=== PATIENT | female | born 1960 | race American Indian/Alaskan Native ===

== ENCOUNTER 2017-08-10 09:47 | Emergency (ER) | payer OTHER ==
[2017-08-10 10:52] VITALS: BP 118/89
--- NOTE | 2017-08-10 11:16 | XRay Report ---
CHEST 2 VIEWS INDICATION: Cough. COMPARISON: None similar at this institution. FINDINGS: PA and lateral chest radiographs demonstrate normal cardiomediastinal silhouette. Slightly prominent lung markings; otherwise clear, well-expanded lungs. Intact bones. CONCLUSION: No acute chest process, as described. Thank you for the opportunity to participate in this patient's care.
--- NOTE | 2017-08-10 11:33 | Emergency Department Report ---
Upper Respiratory HPI - HPI Chief Complaint: Upper Respiratory Infection Stated Complaint: CHEST AND BODY ACHES Time Seen by Provider: 08/10/17 11:25 Duration: 2 Days URI Symptoms: Rhinorrhea: Yes, Sore Throat: Yes, Ear Pain: No, Cough: Yes, Shortness of Breath: No, Sick Contacts: Yes, Unable to Take Fluids: No, Urine Output Abnormal: No, Listless Behavior: No - Home Meds and Allergies Home Medications: Previous Rx's Medication Instructions Recorded Last Taken Type ALBUTEROL Inhaler [ProAir HFA 2 puff IH QID PRN #1 inhalation 08/10/17 Unknown Rx Inhaler] Azithromycin [Zithromax Z-ERIKA] 250 mg PO DAILY #6 tablet 08/10/17 Unknown Rx Codeine Phosphate/Guaifenesin 5 ml PO TID PRN #120 ml 08/10/17 Unknown Rx [Guaifenesin-Codeine Syrup] Ibuprofen 800 mg PO TID PRN #30 tablet 08/10/17 Unknown Rx predniSONE [Deltasone] 40 mg PO QDAY #10 tab 08/10/17 Unknown Rx Allergies/Adverse Reactions: Allergies Allergy/AdvReac Type Severity Reaction Status Date / Time No Known Allergies Allergy Unverified 08/10/17 10:52 ED Review of Systems ROS: Stated complaint: CHEST AND BODY ACHES Other details as noted in HPI Constitutional: chills, fever Eyes: denies: eye pain, eye discharge, vision change ENT: throat pain, congestion Respiratory: cough, wheezing. denies: shortness of breath Cardiovascular: denies: chest pain, palpitations Endocrine: no symptoms reported Gastrointestinal: nausea. denies: abdominal pain, diarrhea, constipation Genitourinary: denies: urgency, dysuria, discharge Musculoskeletal: denies: back pain, joint swelling, arthralgia Skin: denies: rash, lesions Neurological: denies: headache, weakness, paresthesias Psychiatric: denies: anxiety, depression Hematological/Lymphatic: denies: easy bleeding, easy bruising ED Past Medical Hx - Past Medical History Previous Medical History?: No - Surgical History Past Surgical History?: No - Social History Smoking Status: Current Every Day Smoker Substance Use Type: None - Medications Home Medications: Home Medications Medication Instructions Recorded Confirmed Last Taken Type ALBUTEROL Inhaler [ProAir HFA 2 puff IH QID PRN #1 inhalation 08/10/17 Unknown Rx Inhaler] Azithromycin [Zithromax Z-ERIKA] 250 mg PO DAILY #6 tablet 08/10/17 Unknown Rx Codeine Phosphate/Guaifenesin 5 ml PO TID PRN #120 ml 08/10/17 Unknown Rx [Guaifenesin-Codeine Syrup] Ibuprofen 800 mg PO TID PRN #30 tablet 08/10/17 Unknown Rx predniSONE [Deltasone] 40 mg PO QDAY #10 tab 08/10/17 Unknown Rx ED Bronchiolitis Physical Exam - Exam General: Vital signs noted. No distress. Alert and acting appropriately. HEENT: Yes Pharyngeal Erythema, Yes Rhinorrhea, No Conjuctival Injection, No Dry Mucous Membranes Ear: Neither TM Bulge, Neither TM Erythema, Neither EAC Discharge Neck: No Adenopathy, No Rigidity Lungs: Yes Clear Lung Sounds, Yes Good Air Exchange, Yes Cough, No Wheezes, No Stridor, No Nasal Flaring, No Retractions, No Use of Accessory Muscles Heart: Yes Regular, No Murmur Abdomen: Yes Normal Bowel Sounds, No Tenderness, No Peritoneal Signs Skin: No Rash, No Eczema Neurologic: Alert and oriented, no deficits. Musculoskeletal: Unremarkable. ED Bronchiolitis Tests - Testing Testing: CXR: Normal/Negative ED Physical Exam - General Limitations: No Limitations General appearance: alert, in no apparent distress - Head Head exam: Present: atraumatic, normocephalic - Eye Eye exam: Present: normal appearance, PERRL, EOMI Pupils: Present: normal accommodation - ENT ENT exam: Present: normal orophraynx, mucous membranes moist, TM's normal bilaterally, normal external ear exam - Expanded ENT Exam Expanded Mouth exam: Present: tongue normal. Absent: trismus, tongue elevation Throat exam: Positive: tonsillar erythema. Negative: tonsillomegaly, tonsillar exudate, R peritonsillar mass, L peritonsillar mass - Neck Neck exam: Present: normal inspection, full ROM. Absent: tenderness, lymphadenopathy, thyromegaly - Respiratory Respiratory exam: Present: normal lung sounds bilaterally, chest wall tenderness (right lateral ). Absent: respiratory distress, wheezes, rhonchi, stridor - Cardiovascular Cardiovascular Exam: Present: regular rate, normal rhythm. Absent: systolic murmur, diastolic murmur, rubs, gallop - GI/Abdominal GI/Abdominal exam: Present: soft, normal bowel sounds - Rectal Rectal exam: Present: deferred - Extremities Exam Extremities exam: Present: normal inspection, full ROM. Absent: tenderness - Back Exam Back exam: Present: normal inspection, full ROM. Absent: tenderness, CVA tenderness (R), CVA tenderness (L) - Neurological Exam Neurological exam: Present: alert, oriented X3 - Psychiatric Psychiatric exam: Present: normal affect, normal mood - Skin Skin exam: Present: warm, dry, intact, normal color. Absent: rash ED Course Vital Signs 08/10/17 10:42 Temperature 98.4 F Pulse Rate 94 H Blood Pressure 118/89 O2 Sat by Pulse 100 Oximetry ED Medical Decision Making - Radiology Data Radiology results: report reviewed, image reviewed no infiltrates no opacities - Medical Decision Making Is is a 57-year-old -[place] female who presents for URI symptoms including cough congestion or rhinorrhea sore throat nocturnal wheezing patient states nocturnal fever Tmax 07/25/2026 last night cough nonproductive with postnasal drip 35 as her and intermittent nausea patient states intermittent right sided chest wall pain with cough denies shortness of breath no dizziness no nausea vomiting. Exam lungs clear no wheezing ENT TMs normal no erythema no pain nose bilateral turbinates erythema boggy clear postnasal drip pharynx mild erythema and tonsillomegaly no exudate no lesions no stridor no swelling uvula midline plan treatment for bronchitis URI. 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 ED Disposition Clinical Impression: Bronchitis URI (upper respiratory infection) Qualifiers: URI type: unspecified viral URI Qualified Code(s): J06.9 - Acute upper respiratory infection, unspecified Disposition: DC-01 TO HOME OR SELFCARE Is pt being admited?: No Does the pt Need Aspirin: No Condition: Good Instructions: Acute Bronchitis (ED), Upper Respiratory Infection (ED) Prescriptions: ALBUTEROL Inhaler [ProAir HFA Inhaler] 2 puff IH QID PRN #1 inhalation PRN Reason: Shortness Of Breath Azithromycin [Zithromax Z-ERIKA] 250 mg PO DAILY #6 tablet Codeine Phosphate/Guaifenesin [Guaifenesin-Codeine Syrup] 5 ml PO TID PRN #120 ml PRN Reason: Cough Ibuprofen 800 mg PO TID PRN #30 tablet PRN Reason: pain and fever predniSONE [Deltasone] 40 mg PO QDAY #10 tab Referrals: SONY BURNS MD [Staff Physician] - 3-5 Days Forms: Work/School Release Form(ED) Time of Disposition: 11:40
== END 2017-08-10 12:06 | disposition home or self-care (01) ==
LOC: ED 09:47
DX: J40 Bronchitis, not specified as acute or chronic (principal); J06.9 Acute upper respiratory infection, unspecified; F17.200 Nicotine dependence, unspecified, uncomplicated
CPT/HCPCS: 71046; 87400; 99283

== ENCOUNTER 2017-12-28 15:24 | Emergency (ER) | payer OTHER ==
[2017-12-28] MEDS ORDERED: ZOFRAN IV ONE (21:06)
[2017-12-28] MEDS ORDERED: NACL 0.9% 1000 ML 1,000 ML IV ONE (21:06)
[2017-12-28] MEDS ORDERED: SUBLIMAZE IV ONE (21:07)
--- NOTE | 2017-12-28 21:10 | Emergency Department Report ---
ED Abdominal Pain HPI - General Chief Complaint: Abdominal Pain Stated Complaint: ABD PAIN Time Seen by Provider: 12/28/17 21:00 Source: patient Mode of arrival: Ambulatory Limitations: No Limitations - History of Present Illness Initial Comments: Patient is a 57-year-old female with past medical history of hysterectomy and left with one ovary. Patient presented to the ER complaining of right lower quadrant pain since yesterday. Patient saw her OB doctor today and she had an ultrasound done but she does not know the results of it. She stated that she had history of ovarian cyst. Patient denied any nausea or vomiting. No urinary symptoms. No vaginal bleeding or discharge. MD Complaint: abdominal pain -: days(s) Location: RLQ Radiation: none Migration to: no migration Severity scale (0 -10): 9 Quality: stabbing, sharp Consistency: constant - Related Data Previous Rx's Medication Instructions Recorded Last Taken Type ALBUTEROL Inhaler [ProAir HFA 2 puff IH QID PRN #1 inhalation 08/10/17 Unknown Rx Inhaler] Azithromycin [Zithromax Z-ERIKA] 250 mg PO DAILY #6 tablet 08/10/17 Unknown Rx Codeine Phosphate/Guaifenesin 5 ml PO TID PRN #120 ml 08/10/17 Unknown Rx [Guaifenesin-Codeine Syrup] Ibuprofen 800 mg PO TID PRN #30 tablet 08/10/17 Unknown Rx predniSONE [Deltasone] 40 mg PO QDAY #10 tab 08/10/17 Unknown Rx Allergies Allergy/AdvReac Type Severity Reaction Status Date / Time No Known Allergies Allergy Unverified 08/10/17 10:52 ED Review of Systems ROS: Stated complaint: ABD PAIN Other details as noted in HPI Comment: All other systems reviewed and negative Constitutional: denies: chills, fever Respiratory: denies: cough, orthopnea, shortness of breath, SOB with exertion Cardiovascular: denies: chest pain, palpitations Gastrointestinal: abdominal pain. denies: nausea, vomiting, diarrhea, constipation, hematemesis, hematochezia Neurological: denies: headache, weakness Psychiatric: denies: auditory hallucinations, visual hallucinations, homicidal thoughts, suicidal thoughts ED Past Medical Hx - Past Medical History Previous Medical History?: Yes Additional medical history: abd pain, Mitral Valve prolapse - Surgical History Past Surgical History?: Yes Additional Surgical History: Hysterectomy - Social History Smoking Status: Current Every Day Smoker Substance Use Type: Alcohol, Prescribed - Medications Home Medications: Home Medications Medication Instructions Recorded Confirmed Last Taken Type ALBUTEROL Inhaler [ProAir HFA 2 puff IH QID PRN #1 inhalation 08/10/17 Unknown Rx Inhaler] Azithromycin [Zithromax Z-ERIKA] 250 mg PO DAILY #6 tablet 08/10/17 Unknown Rx Codeine Phosphate/Guaifenesin 5 ml PO TID PRN #120 ml 08/10/17 Unknown Rx [Guaifenesin-Codeine Syrup] Ibuprofen 800 mg PO TID PRN #30 tablet 08/10/17 Unknown Rx predniSONE [Deltasone] 40 mg PO QDAY #10 tab 08/10/17 Unknown Rx ED Physical Exam - General Limitations: No Limitations General appearance: alert, in distress (secondary to pain) - Head Head exam: Present: atraumatic, normocephalic, normal inspection - Eye Eye exam: Present: normal appearance - ENT ENT exam: Present: normal exam, normal orophraynx, mucous membranes moist - Neck Neck exam: Present: normal inspection, full ROM. Absent: tenderness, meningismus, lymphadenopathy, thyromegaly - Respiratory Respiratory exam: Present: normal lung sounds bilaterally. Absent: respiratory distress, wheezes, rales, rhonchi, stridor, chest wall tenderness, accessory muscle use, decreased breath sounds, prolonged expiratory - Cardiovascular Cardiovascular Exam: Present: regular rate, normal rhythm, normal heart sounds - GI/Abdominal GI/Abdominal exam: Present: soft, tenderness, rebound, normal bowel sounds. Absent: distended, guarding, rigid, diminished bowel sounds, organomegaly, mass , bruit, pulsatile mass, hernia - Extremities Exam Extremities exam: Present: normal inspection, full ROM, normal capillary refill - Back Exam Back exam: Present: normal inspection, full ROM. Absent: tenderness, CVA tenderness (R), CVA tenderness (L) - Neurological Exam Neurological exam: Present: alert, oriented X3, CN II-XII intact, normal gait, reflexes normal - Skin Skin exam: Present: warm, intact, normal color ED Course Vital Signs 12/28/17 12/29/17 16:14 02:15 Temperature 98.7 F Pulse Rate 94 H Respiratory 20 16 Rate Blood Pressure 144/91 O2 Sat by Pulse 96 99 Oximetry ED Medical Decision Making - Lab Data Result diagrams: 12/28/17 21:12 12/28/17 21:12 - Radiology Data Radiology results: report reviewed Referring Physician: ALEXANDER WILKERSON Patient Name: DYLON RAYMUNDO Date of : 1960 Sex: Female Report Date: 2017-12-28 Report Status: Finalized Findings [facility] [address] [place] [address] Cat Scan Report Signed Patient: DYLON RAYMUNDO MR#: [id number] : 1960 Acct:[id number] Age/Sex: 57 / F ADM Date: 12/28/17 Loc: ED Attending Dr: Ordering Physician: ALEXANDER WILKERSON Date of Service: 12/28/17 Procedure(s): CT abdomen pelvis w con Accession Number(s): [id number] cc: ALEXANDER WILKERSON FINAL REPORT PROCEDURE: CT ABDOMEN PELVIS W CON TECHNIQUE: Computerized axial tomography of the abdomen and pelvis was performed after the IV injection of iodinated nonionic contrast. HISTORY: Abdominal Pain /right lower quadrant pain and tend COMPARISON: No prior studies are available for comparison. FINDINGS: Visualized lower thorax: No significant abnormality. Liver: Normal size and attenuation. Spleen: Normal size and attenuation. Gallbladder and biliary system: There has been cholecystectomy. Pancreas: Normal. Adrenals: Normal. Kidneys: There are 2 right renal cysts present, measuring up to 15 millimeters in caliber. GI tract: The appendix is visualized and does not appear inflamed. No bowel obstruction or acute inflammation is seen. Lymph nodes and mesentery: Normal. Vasculature: Vascular calcification. Bladder: Normal. Reproductive organs: Uterus is not visualized. Peritoneum: No free fluid. Musculoskeletal structures: No significant abnormality. Other: Small fat containing anterior abdominal wall hernia. IMPRESSION: There is a small fat containing anterior abdominal wall hernia, just superior to the level of the umbilicus Transcribed By: NEL Dictated By: RICHIE SARKAR M.D. Electronically Authenticated By: RICHIE SARKAR M.D. Signed Date/Time: 12/28/172227 DD/ 27 TD/TT: 12/28/172227 - Medical Decision Making Patient stated that she is feeling much better. CT abdomen and pelvis showed no acute finding except for abdominal hernia was no evidence of incarceration. I advised patient to follow up with our primary care physician in the next 2-3 days and return to the ER if her symptoms are not improving. Critical care attestation.: If time is entered above; I have spent that time in minutes in the direct care of this critically ill patient, excluding procedure time. ED Disposition Clinical Impression: Abdominal pain Disposition: DC-01 TO HOME OR SELFCARE Is pt being admited?: No Condition: Stable Instructions: Abdominal Pain (ED) Referrals: PRIMARY CARE, [Primary Care Provider] - 3-5 Days
[2017-12-28] MEDS ORDERED: MORPHINE ONE ×2 (21:21→21:22)
[2017-12-28 21:26] LABS: Basophils # (Auto) 0.1 K/mm3 (0.0-0.1); Basophils % (Auto) 1.1 % (0.0-1.8); Eosinophils # (Auto) 0.2 K/mm3 (0.0-0.4); Eosinophils % (Auto) 2.3 % (0.0-4.3); Hemoglobin 13.8 gm/dl (10.1-14.3); Lymphocytes # (Auto) 3.7 K/mm3 (1.2-5.4); Lymphocytes % (Auto) 48.9 % (13.4-35.0); Mean Corpuscular HGB Conc 34 % (30-34); Mean Corpuscular Hemoglobin 31 pg (28-32); Mean Corpuscular Volume 92 fl (79-97); Monocytes # (Auto) 0.3 K/mm3 (0.0-0.8); Monocytes % (Auto) 4.6 % (0.0-7.3); Platelet Count 194 K/mm3 (140-440); Red Blood Count 4.47 M/mm3 (3.65-5.03); Red Cell Distribution Width 14.5 % (13.2-15.2)
[2017-12-28] MEDS ORDERED: MORPHINE IV ONE (21:35)
[2017-12-28 21:36] LABS: INR 0.81 (0.87-1.13)
[2017-12-28 21:42] LABS: Alanine Aminotransferase 16 units/L (7-56); Albumin 4.2 g/dL (3.9-5); BUN/Creatinine Ratio 17; Bilirubin,Direct < 0.2 mg/dL (0-0.2); Blood Urea Nitrogen 15 mg/dL (7-17); Calcium 9.1 mg/dL (8.4-10.2); Hemolysis Index 53
--- NOTE | 2017-12-28 22:32 | Cat Scan Report ---
FINAL REPORT PROCEDURE: CT ABDOMEN PELVIS W CON TECHNIQUE: Computerized axial tomography of the abdomen and pelvis was performed after the IV injection of iodinated nonionic contrast. HISTORY: Abdominal Pain /right lower quadrant pain and tend COMPARISON: No prior studies are available for comparison. FINDINGS: Visualized lower thorax: No significant abnormality. Liver: Normal size and attenuation. Spleen: Normal size and attenuation. Gallbladder and biliary system: There has been cholecystectomy. Pancreas: Normal. Adrenals: Normal. Kidneys: There are 2 right renal cysts present, measuring up to 15 millimeters in caliber. GI tract: The appendix is visualized and does not appear inflamed. No bowel obstruction or acute inflammation is seen. Lymph nodes and mesentery: Normal. Vasculature: Vascular calcification. Bladder: Normal. Reproductive organs: Uterus is not visualized. Peritoneum: No free fluid. Musculoskeletal structures: No significant abnormality. Other: Small fat containing anterior abdominal wall hernia. IMPRESSION: There is a small fat containing anterior abdominal wall hernia, just superior to the level of the umbilicus
[2017-12-29 01:20] LABS: Bilirubin,Urine NEG (Negative); Blood,Urine MOD (Negative); Color,Urine Yellow (Yellow); Mucus,Urine FEW /HPF; Protein,Urine <15 mg/dL mg/dL (Negative); Urobilinogen,Urine < 2.0 mg/dL (<2.0); WBC,Urine < 1.0 /HPF (0.0-6.0)
[2017-12-29] MEDS ORDERED: SUBLIMAZE IV ONE (02:17)
[2017-12-29] MEDS ORDERED: SUBLIMAZE ONE (02:21)
[2017-12-29 02:47] VITALS: BP 144/73
== END 2017-12-29 02:45 | disposition home or self-care (01) ==
LOC: ED 15:24
DX: R10.31 Right lower quadrant pain (principal); F17.200 Nicotine dependence, unspecified, uncomplicated
CPT/HCPCS: 36415; 74177; 80048; 80074; 81001; 85025; 85610; 96361; 96374; 96375; 99284; J2270; J2405; J3010; J7030; Q9967

== ENCOUNTER 2019-05-17 11:09 | Observation (INO) | payer OTHER ==
[2019-05-17] MEDS ORDERED: CEFEPIME/NS 2 GM/100 ML 2 GM/100 ML BAG IV ONE (11:52)
[2019-05-17] MEDS ORDERED: IPRATROPIUM/ALBUTEROL SULFATE 3 ML AMPUL.NEB IH ONE (11:52)
[2019-05-17] MEDS ORDERED: methylPREDNISolone Sod Succinate 125 MG/2 ML INJ IV ONE (11:52)
[2019-05-17] MEDS ORDERED: MAGNESIUM SULFATE 2 GM/50 ML BAG IV ONE (11:52)
[2019-05-17] MEDS ORDERED: SODIUM CHLORIDE 0.9% 1000 ML 1,000 ML IV ONE (11:52)
--- NOTE | 2019-05-17 11:54 | Emergency Department Report ---
ED Shortness of Breath HPI - General Chief Complaint: Dyspnea/Respdistress Stated Complaint: KATHY/SOB Time Seen by Provider: 05/17/19 11:45 Source: patient Mode of arrival: Ambulatory Limitations: No Limitations - History of Present Illness Initial Comments: Patient is a 58-year-old female that presents emergency room for shortness of breath and cough 2 weeks. Patient states she was seen last week in urgent care and diagnosed with the flu and given conservative treatment. Patient states she's having difficulties breathing. Patient states her symptoms are worse with coughing and exertion. Patient states her symptoms are better with rest. Patie nt states she's tried [id number] treatments and nothing is helping. Patient denies chest pain. MD Complaint: shortness of breath, cough -: Sudden Severity: severe Consistency: constant Improves With: rest Worsens With: medication Context: recent URI, other (recent flu) Associated Symptoms: cough Treatments Prior to Arrival: other - Related Data Home Oxygen Therapy: No Home Medications Medication Instructions Recorded Confirmed Last Taken No Known Home Medications [No 05/17/19 05/17/19 Unknown Reported Home Medications] Allergies Allergy/AdvReac Type Severity Reaction Status Date / Time No Known Allergies Allergy Verified 05/17/19 14:01 ED Review of Systems ROS: Stated complaint: KATHY/SOB Other details as noted in HPI Constitutional: denies: chills, fever Eyes: denies: eye pain, eye discharge, vision change ENT: denies: ear pain, throat pain Respiratory: cough, shortness of breath, SOB with exertion, SOB at rest, wheezing Cardiovascular: denies: chest pain, palpitations Endocrine: no symptoms reported Gastrointestinal: denies: abdominal pain, nausea, diarrhea Genitourinary: denies: urgency, dysuria, discharge Musculoskeletal: denies: back pain, joint swelling, arthralgia Skin: denies: rash, lesions Neurological: denies: headache, weakness, paresthesias Psychiatric: denies: anxiety, depression Hematological/Lymphatic: denies: easy bleeding, easy bruising ED Past Medical Hx - Past Medical History Previous Medical History?: Yes Additional medical history: abd pain, Mitral Valve prolapse - Surgical History Past Surgical History?: Yes Additional Surgical History: Hysterectomy - Family History Family history: no significant - Social History Smoking Status: Current Every Day Smoker Substance Use Type: None - Medications Home Medications: Home Medications Medication Instructions Recorded Confirmed Last Taken Type No Known Home Medications [No 05/17/19 05/17/19 Unknown History Reported Home Medications] ED Physical Exam - General Limitations: No Limitations General appearance: alert, in distress - Head Head exam: Present: atraumatic, normocephalic - Eye Eye exam: Present: normal appearance - ENT ENT exam: Present: mucous membranes moist - Neck Neck exam: Present: normal inspection - Respiratory Respiratory exam: Present: respiratory distress, wheezes, rhonchi - Cardiovascular Cardiovascular Exam: Present: regular rate, normal rhythm. Absent: systolic murmur, diastolic murmur, rubs, gallop - GI/Abdominal GI/Abdominal exam: Present: soft, normal bowel sounds. Absent: distended, tenderness - Extremities Exam Extremities exam: Present: normal inspection - Back Exam Back exam: Present: normal inspection - Neurological Exam Neurological exam: Present: alert, oriented X3 - Psychiatric Psychiatric exam: Present: normal affect, normal mood - Skin Skin exam: Present: warm, dry, intact, normal color. Absent: rash ED Course Vital Signs 05/17/19 05/17/19 11:18 12:21 Temperature 98.7 F Pulse Rate 59 L Pulse Rate [ 104 H Anterior Bilateral] Respiratory 24 Rate Respiratory 22 Rate [Anterior Bilateral] Blood Pressure 106/80 O2 Sat by Pulse 98 Oximetry - Reevaluation(s) Reevaluation #1: Initial evaluation done. Upon initial evaluation patient noted to have an oxyge n saturation of 9394. Patient placed on 2 L and oxygen saturation improved. Patient also noted to have wheezing and rhonchi in her lung exam. Patient will be given magnesium, Medrol, DuoNeb 05/17/19 11:53 Reevaluation #2: Patient's current oxygen saturation is 95% on 3 L. Patient has been given multiple medications. Patient states she is not feeling any better. I discussed all results with patient. I discussed plan of care with patient. Patient agrees with plan of care and admission. Patient will be admitted to the hospital service. 05/17/19 12:56 - Consultations Consultation #1: Hospitalist consult for admission. Hospitalist to admit patient. 05/17/19 12:56 ED Medical Decision Making - Lab Data Result diagrams: 05/17/19 12:10 05/17/19 12:10 - Radiology Data Radiology results: report reviewed, image reviewed interpreted by me: early right lower lung pneumonia. - Medical Decision Making She is a 58-year-old female that presents emergency room with complaints of difficulties breathing shortness of breath. Patient's found to be hypoxic on initial evaluation. Patient placed on oxygen. Patient's oxygen slightly improved. Patient given multiple medications in the ER. Patient's labs unremarkable except for elevated WBC. Patient's chest x-ray shows rhonchi disperses early pneumonia. Patient admitted to the hospitalist service. - Differential Diagnosis shortness of breath. Difficult to breathe. Pneumonia. Bronchitis. Wheez Critical Care Time: Yes Critical care time in (mins) excluding proc time.: 35 Critical care attestation.: If time is entered above; I have spent that time in minutes in the direct care of this critically ill patient, excluding procedure time. Critical Care Time: 35 minutes ED Disposition Clinical Impression: Hypoxia, Bronchitis, Cough, SOB (shortness of breath), Difficulty breathing Disposition: DC-09 OP ADMIT IP TO THIS HOSP Is pt being admited?: Yes Does the pt Need Aspirin: No Condition: Critical Time of Disposition: 12:56
--- NOTE | 2019-05-17 12:37 | XRay Report ---
CHEST 2 VIEWS INDICATION / CLINICAL INFORMATION: cough, SOB. COMPARISON: 08/10/2017 FINDINGS: SUPPORT DEVICES: None. HEART / MEDIASTINUM: No significant abnormality. LUNGS / PLEURA: There is mild increase in interstitial markings bilaterally possibly representing kimberlee ma or pneumonitis. .No pneumothorax. ADDITIONAL FINDINGS: No significant additional findings. IMPRESSION: 1. There is mild increase in interstitial markings bilaterally could represent edema or pneumonitis. Signer Name: Jeffrey Galan MD Signed: 05/17/2019 12:33 PM Workstation Name: [id number]
[2019-05-17 12:41] LABS: Basophils % (Auto) 0.2 % (0.0-1.8); Eosinophils # (Auto) 0.1 K/mm3 (0.0-0.4); Eosinophils % (Auto) 0.7 % (0.0-4.3); Hemoglobin 13.7 gm/dl (10.1-14.3); Lymphocytes # (Auto) 1.9 K/mm3 (1.2-5.4); Lymphocytes % (Auto) 14.2 % (13.4-35.0); Mean Corpuscular HGB Conc 33 % (30-34); Mean Corpuscular Volume 93 fl (79-97); Monocytes # (Auto) 0.8 K/mm3 (0.0-0.8); Monocytes % (Auto) 5.9 % (0.0-7.3); Platelet Count 193 K/mm3 (140-440); Red Blood Count 4.43 M/mm3 (3.65-5.03); Red Cell Distribution Width 14.1 % (13.2-15.2)
[2019-05-17 13:04] LABS: Alanine Aminotransferase 25 units/L (7-56); Albumin 4.1 g/dL (3.9-5); BUN/Creatinine Ratio 10; Blood Urea Nitrogen 8 mg/dL (7-17); Calcium 9.3 mg/dL (8.4-10.2); Hemolysis Index 1
--- NOTE | 2019-05-17 15:41 | History and Physical Report ---
History of Present Illness Date of examination: 05/17/19 Date of admission: 05/17/19 13:51 Chief complaint: Cough for 2 weeks History of present illness: 58-year-old -[place] female with no significant past medical history comes in for cough and body aches for 2 weeks. Cough L LS sputum. Patient went to urgent care last week and was diagnosed with flu and was given treatment. Patient has been wheezing and coughing for the past 2 weeks. No improvement. Low-grade fever present. No recent travel. No exacerbating or relieving factors. Lower extremities as well. Not a smoker. No chest pain. Past Medical History Previous Medical History?: Yes Additional medical history: abd pain, Mitral Valve prolapse Surgical History Past Surgical History?: Yes Additional Surgical History: Hysterectomy Family History Family history: no significant Social History Smoking Status: Current Every Day Smoker Substance Use Type: None - Medications Home Medications: Home Medications Medication Instructions Recorded Confirmed Last Taken Type No Known Home Medications [No 05/17/19 05/17/19 Unknown History Reported Home Medications] Review of Systems ROS: Stated complaint: KATHY/SOB Other details as noted in HPI Constitutional: denies: chills, fever Eyes: denies: eye pain, eye discharge, vision change ENT: denies: ear pain, throat pain Respiratory: cough, shortness of breath, SOB with exertion, SOB at rest, wheezing Cardiovascular: denies: chest pain, palpitations Endocrine: no symptoms reported Gastrointestinal: denies: abdominal pain, nausea, diarrhea Genitourinary: denies: urgency, dysuria, discharge Musculoskeletal: denies: back pain, joint swelling, arthralgia Skin: denies: rash, lesions Neurological: denies: headache, weakness, paresthesias Psychiatric: denies: anxiety, depression Hematological/Lymphatic: denies: easy bleeding, easy bruising Medications and Allergies Allergies Allergy/AdvReac Type Severity Reaction Status Date / Time No Known Allergies Allergy Verified 05/17/19 14:01 Home Medications Medication Instructions Recorded Confirmed Last Taken Type No Known Home Medications [No 05/17/19 05/17/19 Unknown History Reported Home Medications] Exam - Constitutional Vitals: Temp Pulse Resp BP Pulse Ox 98.7 F 104 H 22 106/80 98 05/17/19 11:18 05/17/19 12:21 05/17/19 12:21 05/17/19 11:18 05/17/19 11:18 General appearance: Present: no acute distress, mild distress, well-nourished - EENT Eyes: Present: PERRL ENT: hearing intact, clear oral mucosa - Neck Neck: Present: supple, normal ROM - Respiratory Respiratory effort: normal Respiratory: bilateral: diminished, rhonchi, wheezing, other - Cardiovascular Heart rate: 86 Rhythm: regular Heart Sounds: Present: S1 & S2. Absent: rub, click - Extremities Extremities: no ischemia, pulses intact, pulses symmetrical, No edema Peripheral Pulses: within normal limits - Abdominal General gastrointestinal: Present: soft, non-tender, non-distended, normal bowel sounds Female genitourinary: Present: normal - Rectal Rectal Exam: stool brown - Integumentary Integumentary: Present: clear, warm, dry - Musculoskeletal Musculoskeletal: gait normal, strength equal bilaterally - Psychiatric Psychiatric: appropriate mood/affect, intact judgment & insight - Neurologic Neurologic: CNII-XII intact, moves all extremities - Allied Health Allied health notes reviewed: nursing, case management Results - Labs CBC & Chem 7: 05/18/19 04:55 05/18/19 04:55 Labs: Laboratory Last Values WBC 13.0 K/mm3 (4.5-11.0) H 05/17/19 12:10 RBC 4.43 M/mm3 (3.65-5.03) 05/17/19 12:10 Hgb 13.7 gm/dl (10.1-14.3) 05/17/19 12:10 Hct 41.0 % (30.3-42.9) 05/17/19 12:10 MCV 93 fl (79-97) 05/17/19 12:10 MCH 31 pg (28-32) 05/17/19 12:10 MCHC 33 % (30-34) 05/17/19 12:10 RDW 14.1 % (13.2-15.2) 05/17/19 12:10 Plt Count 193 K/mm3 (140-440) 05/17/19 12:10 Lymph % (Auto) 14.2 % (13.4-35.0) 05/17/19 12:10 [place] % (Auto) 5.9 % (0.0-7.3) 05/17/19 12:10 Eos % (Auto) 0.7 % (0.0-4.3) 05/17/19 12:10 Baso % (Auto) 0.2 % (0.0-1.8) 05/17/19 12:10 Lymph # 1.9 K/mm3 (1.2-5.4) 05/17/19 12:10 [place] # 0.8 K/mm3 (0.0-0.8) 05/17/19 12:10 Eos # 0.1 K/mm3 (0.0-0.4) 05/17/19 12:10 Baso # 0.0 K/mm3 (0.0-0.1) 05/17/19 12:10 Seg Neutrophils % 79.0 % (40.0-70.0) H 05/17/19 12:10 Seg Neutrophils # 10.3 K/mm3 (1.8-7.7) H 05/17/19 12:10 Sodium 141 mmol/L (137-145) 05/17/19 12:10 Potassium 4.2 mmol/L (3.6-5.0) 05/17/19 12:10 Chloride 100.3 mmol/L (98-107) 05/17/19 12:10 Carbon Dioxide 24 mmol/L (22-30) 05/17/19 12:10 Anion Gap 21 mmol/L 05/17/19 12:10 BUN 8 mg/dL (7-17) 05/17/19 12:10 Creatinine 0.8 mg/dL (0.7-1.2) 05/17/19 12:10 Estimated GFR > 60 ml/min 05/17/19 12:10 BUN/Creatinine Ratio 10 % 05/17/19 12:10 Glucose 100 mg/dL (65-100) 05/17/19 12:10 Calcium 9.3 mg/dL (8.4-10.2) 05/17/19 12:10 Total Bilirubin 0.60 mg/dL (0.1-1.2) 05/17/19 12:10 AST 15 units/L (5-40) 05/17/19 12:10 ALT 25 units/L (7-56) 05/17/19 12:10 Alkaline Phosphatase 100 units/L (35-129) 05/17/19 12:10 Total Protein 7.0 g/dL (6.3-8.2) 05/17/19 12:10 Albumin 4.1 g/dL (3.9-5) 05/17/19 12:10 Albumin/Globulin Ratio 1.4 % 05/17/19 12:10 Short CBC 05/17/19 Range/Units 12:10 WBC 13.0 H (4.5-11.0) K/mm3 Hgb 13.7 (10.1-14.3) gm/dl Hct 41.0 (30.3-42.9) % Plt Count 193 (140-440) K/mm3 BMP 05/17/19 12:10 Sodium 141 Potassium 4.2 Chloride 100.3 Carbon Dioxide 24 BUN 8 Creatinine 0.8 Glucose 100 Calcium 9.3 Liver Function 05/17/19 Range/Units 12:10 Total Bilirubin 0.60 (0.1-1.2) mg/dL AST 15 (5-40) units/L ALT 25 (7-56) units/L Alkaline Phosphatase 100 (35-129) units/L Albumin 4.1 (3.9-5) g/dL - Imaging and Cardiology EKG: report reviewed Chest x-ray: report reviewed Imaging and Cardiology: Chest x-ray Increase in interstitial markings bilaterally Assessment and Plan Advance Directives: Yes (full code) VTE prophylaxis?: Chemical Plan of care discussed with patient/family: Yes - Patient Problems (1) COPD exacerbation Current Visit: Yes Status: Acute Plan to address problem: Patient has underlying COPD secondary to smoking Smoking cessation consult Low-dose Solu-Medrol IV antibiotics and nebulizer treatments (2) Acute bronchitis Current Visit: Yes Status: Acute Qualifiers: Bronchitis organism: unspecified organism Qualified Code(s): J20.9 - Acute bronchitis, unspecified Plan to address problem: IV antibiotics IV fluids and IV Solu-Medrol. Also nebulizer treatments around the clock and when necessary (3) DVT prophylaxis Current Visit: Yes Status: Acute Plan to address problem: On Lovenox 40 mg subcutaneous daily and GI prophylaxis
[2019-05-17] MEDS ORDERED: ACETAMINOPHEN 325 MG TAB PO PRN (15:55)
[2019-05-17] MEDS ORDERED: HYDROmorphone 1 MG/1 ML INJ IV PRN (15:55)
[2019-05-17] MEDS ORDERED: ONDANSETRON 4 MG/2 ML INJ IV PRN (15:55)
[2019-05-17] MEDS ORDERED: METOCLOPRAMIDE 10 MG/2 ML INJ IV PRN (15:55)
[2019-05-17] MEDS ORDERED: ALBUTEROL 2.5 MG/3 ML NEBU IH PRN (15:56)
[2019-05-17] MEDS: IPRATROPIUM/ALBUTEROL SULFATE 3 ML AMPUL.NEB IH SCH ×2 (17:36→20:33)
[2019-05-17] MEDS: SODIUM CHLORIDE 0.45% 1000 ML 1,000 ML IV SCH (18:06)
[2019-05-17] MEDS: methylPREDNISolone Sod Succinate 125 MG/2 ML INJ IV SCH (20:55)
[2019-05-17] MEDS: FAMOTIDINE 20 MG TAB PO SCH (21:37)
[2019-05-18] MEDS: methylPREDNISolone Sod Succinate 125 MG/2 ML INJ IV SCH ×3 (04:19→21:39)
[2019-05-18 05:24] LABS: Basophils % (Auto) 0.1 % (0.0-1.8); Hematocrit 38.6 % (30.3-42.9); Hemoglobin 12.8 gm/dl (10.1-14.3); Lymphocytes # (Auto) 1.5 K/mm3 (1.2-5.4); Lymphocytes % (Auto) 11.6 % (13.4-35.0); Mean Corpuscular HGB Conc 33 % (30-34); Mean Corpuscular Volume 93 fl (79-97); Monocytes # (Auto) 0.3 K/mm3 (0.0-0.8); Monocytes % (Auto) 2.3 % (0.0-7.3); Platelet Count 203 K/mm3 (140-440); Red Blood Count 4.15 M/mm3 (3.65-5.03); Red Cell Distribution Width 14.2 % (13.2-15.2)
[2019-05-18 05:47] LABS: Alanine Aminotransferase 24 units/L (7-56); Albumin 3.8 g/dL (3.9-5); BUN/Creatinine Ratio 10; Blood Urea Nitrogen 7 mg/dL (7-17); Calcium 9.4 mg/dL (8.4-10.2); Hemolysis Index 6
[2019-05-18] MEDS: oxyCODONE /ACETAMINOPHEN 5-325MG TAB PO PRN ×3 (05:50→17:50)
[2019-05-18] MEDS: IPRATROPIUM/ALBUTEROL SULFATE 3 ML AMPUL.NEB IH SCH ×4 (07:44→20:07)
[2019-05-18] MEDS: FAMOTIDINE 20 MG TAB PO SCH ×3 (10:17→21:39)
[2019-05-18] MEDS: SODIUM CHLORIDE 0.45% 1000 ML 1,000 ML IV SCH (10:18)
[2019-05-18] MEDS ORDERED: PNEUMOCOCCAL 23 Valent 0.5 ML VIAL IM ONE (12:00)
--- NOTE | 2019-05-18 18:23 | Progress Note ---
Assessment and Plan Assessment and plan: -- COPD exacerbation Current Visit: Yes Status: Acute Patient has underlying COPD secondary to smoking Oxygen nebulizers and IV steroids and IV antibiotics Smoking cessation consult -- Acute bronchitis Current Visit: Yes Status: Acute IV antibiotics IV fluids and IV Solu-Medrol. Also nebulizer treatments around the clock and when necessary. --Obesity :BMI 35.7 Advised weight reduction and medically stable -- DVT prophylaxis; Current Visit: Yes Status: Acute On Lovenox 40 mg subcutaneous daily Monitor clinically and adjust management as needed Plan of care is reviewed with the patient and her nurse History Interval history: Patient seen and examined medical records reviewed Admitted with acute exacerbation of COPD and acute bronchitis She still has mild shortness of breath and wheezing In mild distress Vital signs noted Hospitalist Physical - Constitutional Vitals: Temp Pulse Resp BP Pulse Ox 99.0 F 97 H 20 148/94 93 05/18/19 11:51 05/18/19 16:00 05/18/19 16:00 05/18/19 11:51 05/18/19 11:51 General appearance: Present: no acute distress, mild distress, well-nourished - EENT Eyes: Present: PERRL, EOM intact - Neck Neck: Present: supple, normal ROM - Respiratory Respiratory effort: normal Respiratory: bilateral: diminished, wheezing, negative: rales, rhonchi - Cardiovascular Rhythm: regular Heart Sounds: Present: S1 & S2 - Extremities Extremities: no ischemia, No edema - Abdominal General gastrointestinal: soft, non-tender, non-distended, normal bowel sounds - Integumentary Integumentary: Present: clear, warm - Psychiatric Psychiatric: appropriate mood/affect, cooperative - Neurologic Neurologic: CNII-XII intact, moves all extremities Results - Labs CBC & Chem 7: 05/18/19 04:55 05/18/19 04:55 Labs: Laboratory Last Values WBC 12.6 K/mm3 (4.5-11.0) H 05/18/19 04:55 RBC 4.15 M/mm3 (3.65-5.03) 05/18/19 04:55 Hgb 12.8 gm/dl (10.1-14.3) 05/18/19 04:55 Hct 38.6 % (30.3-42.9) 05/18/19 04:55 MCV 93 fl (79-97) 05/18/19 04:55 MCH 31 pg (28-32) 05/18/19 04:55 MCHC 33 % (30-34) 05/18/19 04:55 RDW 14.2 % (13.2-15.2) 05/18/19 04:55 Plt Count 203 K/mm3 (140-440) 05/18/19 04:55 Lymph % (Auto) 11.6 % (13.4-35.0) L 05/18/19 04:55 [place] % (Auto) 2.3 % (0.0-7.3) 05/18/19 04:55 Eos % (Auto) 0.0 % (0.0-4.3) 05/18/19 04:55 Baso % (Auto) 0.1 % (0.0-1.8) 05/18/19 04:55 Lymph # 1.5 K/mm3 (1.2-5.4) 05/18/19 04:55 [place] # 0.3 K/mm3 (0.0-0.8) 05/18/19 04:55 Eos # 0.0 K/mm3 (0.0-0.4) 05/18/19 04:55 Baso # 0.0 K/mm3 (0.0-0.1) 05/18/19 04:55 Seg Neutrophils % 86.0 % (40.0-70.0) H 05/18/19 04:55 Seg Neutrophils # 10.8 K/mm3 (1.8-7.7) H 05/18/19 04:55 Sodium 140 mmol/L (137-145) 05/18/19 04:55 Potassium 3.9 mmol/L (3.6-5.0) 05/18/19 04:55 Chloride 103.8 mmol/L (98-107) 05/18/19 04:55 Carbon Dioxide 20 mmol/L (22-30) L 05/18/19 04:55 Anion Gap 20 mmol/L 05/18/19 04:55 BUN 7 mg/dL (7-17) 05/18/19 04:55 Creatinine 0.7 mg/dL (0.7-1.2) 05/18/19 04:55 Estimated GFR > 60 ml/min 05/18/19 04:55 BUN/Creatinine Ratio 10 % 05/18/19 04:55 Glucose 168 mg/dL (65-100) H 05/18/19 04:55 Hemoglobin A1c 5.8 % (4-6) 05/17/19 12:10 Calcium 9.4 mg/dL (8.4-10.2) 05/18/19 04:55 Total Bilirubin 0.20 mg/dL (0.1-1.2) 05/18/19 04:55 AST 14 units/L (5-40) 05/18/19 04:55 ALT 24 units/L (7-56) 05/18/19 04:55 Alkaline Phosphatase 87 units/L (35-129) 05/18/19 04:55 Total Protein 7.5 g/dL (6.3-8.2) 05/18/19 04:55 Albumin 3.8 g/dL (3.9-5) L 05/18/19 04:55 Albumin/Globulin Ratio 1.0 % 05/18/19 04:55 Active Medications - Current Medications Current Medications: Generic Name Dose Route Start Last Admin Trade Name Freq PRN Reason Stop Dose Admin Acetaminophen 650 mg 05/17/19 15:55 Tylenol PO Q4H PRN Pain MILD(1-3)/Fever >100.5/SCALES Albuterol 2.5 mg 05/17/19 15:56 Proventil IH Q4HRT PRN Shortness Of Breath Albuterol/Ipratropium 1 ampul 05/17/19 16:00 05/18/19 17:18 Duoneb *Not For Prn Use* IH 1 ampul QIDRT VANE Administration Famotidine 20 mg 05/17/19 18:00 05/18/19 10:17 Pepcid PO 20 mg BID VANE Administration Hydromorphone HCl 0.5 mg 05/17/19 15:55 Dilaudid IV Q3H PRN Pain , Severe (7-10) Sodium Chloride 1,000 mls @ 75 mls/hr 05/17/19 17:00 05/18/19 10:18 Nacl 0.45% 1000 Ml IV 75 mls/hr DIRECT VANE Administration Levofloxacin/Dextrose 750 mg in 150 mls @ 100 mls/hr 05/17/19 18:00 05/18/19 17:45 Levaquin 750mg/150ml IV 100 mls/hr Q24H VANE Administration Protocol Methylprednisolone Sodium Succinate 60 mg 05/17/19 20:00 05/18/19 12:09 Solu-Medrol IV 60 mg Q8H VANE Administration Metoclopramide HCl 10 mg 05/17/19 15:55 Reglan IV Q6H PRN Nausea And Vomiting Ondansetron HCl 4 mg 05/17/19 15:55 Zofran IV Q8H PRN Nausea And Vomiting Oxycodone/Acetaminophen 1 tab 05/17/19 15:55 05/18/19 17:50 Percocet 5/325 PO 1 tab Q6H PRN Administration Pain, Moderate (4-6) Sodium Chloride 10 ml 05/17/19 22:00 05/18/19 10:17 Sodium Chloride Flush Syringe 10 Ml IV 10 ml BID VANE Administration Sodium Chloride 10 ml 05/17/19 15:55 05/18/19 12:12 Sodium Chloride Flush Syringe 10 Ml IV 10 ml PRN PRN Administration LINE FLUSH
[2019-05-19] MEDS: SODIUM CHLORIDE 0.45% 1000 ML 1,000 ML IV SCH (01:19)
[2019-05-19] MEDS: oxyCODONE /ACETAMINOPHEN 5-325MG TAB PO PRN (01:22)
[2019-05-19] MEDS: methylPREDNISolone Sod Succinate 125 MG/2 ML INJ IV SCH ×2 (06:21→14:41)
[2019-05-19] MEDS: IPRATROPIUM/ALBUTEROL SULFATE 3 ML AMPUL.NEB IH SCH ×3 (09:39→16:36)
[2019-05-19] MEDS: FAMOTIDINE 20 MG TAB PO SCH (09:54)
--- NOTE | 2019-05-19 10:39 | Progress Note ---
Hospitalist Physical - Constitutional Vitals: Temp Pulse Resp BP Pulse Ox 98.0 F 94 H 20 138/77 95 05/19/19 05:30 05/19/19 08:00 05/19/19 08:00 05/19/19 05:30 05/19/19 09:42 General appearance: Present: no acute distress, mild distress, well-nourished Results - Labs CBC & Chem 7: 05/18/19 04:55 05/18/19 04:55 Labs: Laboratory Last Values WBC 12.6 K/mm3 (4.5-11.0) H 05/18/19 04:55 RBC 4.15 M/mm3 (3.65-5.03) 05/18/19 04:55 Hgb 12.8 gm/dl (10.1-14.3) 05/18/19 04:55 Hct 38.6 % (30.3-42.9) 05/18/19 04:55 MCV 93 fl (79-97) 05/18/19 04:55 MCH 31 pg (28-32) 05/18/19 04:55 MCHC 33 % (30-34) 05/18/19 04:55 RDW 14.2 % (13.2-15.2) 05/18/19 04:55 Plt Count 203 K/mm3 (140-440) 05/18/19 04:55 Lymph % (Auto) 11.6 % (13.4-35.0) L 05/18/19 04:55 [place] % (Auto) 2.3 % (0.0-7.3) 05/18/19 04:55 Eos % (Auto) 0.0 % (0.0-4.3) 05/18/19 04:55 Baso % (Auto) 0.1 % (0.0-1.8) 05/18/19 04:55 Lymph # 1.5 K/mm3 (1.2-5.4) 05/18/19 04:55 [place] # 0.3 K/mm3 (0.0-0.8) 05/18/19 04:55 Eos # 0.0 K/mm3 (0.0-0.4) 05/18/19 04:55 Baso # 0.0 K/mm3 (0.0-0.1) 05/18/19 04:55 Seg Neutrophils % 86.0 % (40.0-70.0) H 05/18/19 04:55 Seg Neutrophils # 10.8 K/mm3 (1.8-7.7) H 05/18/19 04:55 Sodium 140 mmol/L (137-145) 05/18/19 04:55 Potassium 3.9 mmol/L (3.6-5.0) 05/18/19 04:55 Chloride 103.8 mmol/L (98-107) 05/18/19 04:55 Carbon Dioxide 20 mmol/L (22-30) L 05/18/19 04:55 Anion Gap 20 mmol/L 05/18/19 04:55 BUN 7 mg/dL (7-17) 05/18/19 04:55 Creatinine 0.7 mg/dL (0.7-1.2) 05/18/19 04:55 Estimated GFR > 60 ml/min 05/18/19 04:55 BUN/Creatinine Ratio 10 % 05/18/19 04:55 Glucose 168 mg/dL (65-100) H 05/18/19 04:55 Hemoglobin A1c 5.8 % (4-6) 05/17/19 12:10 Calcium 9.4 mg/dL (8.4-10.2) 05/18/19 04:55 Total Bilirubin 0.20 mg/dL (0.1-1.2) 05/18/19 04:55 AST 14 units/L (5-40) 05/18/19 04:55 ALT 24 units/L (7-56) 05/18/19 04:55 Alkaline Phosphatase 87 units/L (35-129) 05/18/19 04:55 Total Protein 7.5 g/dL (6.3-8.2) 05/18/19 04:55 Albumin 3.8 g/dL (3.9-5) L 05/18/19 04:55 Albumin/Globulin Ratio 1.0 % 05/18/19 04:55 Active Medications - Current Medications Current Medications: Generic Name Dose Route Start Last Admin Trade Name Freq PRN Reason Stop Dose Admin Acetaminophen 650 mg 05/17/19 15:55 Tylenol PO Q4H PRN Pain MILD(1-3)/Fever >100.5/SCALES Albuterol 2.5 mg 05/17/19 15:56 Proventil IH Q4HRT PRN Shortness Of Breath Albuterol/Ipratropium 1 ampul 05/17/19 16:00 05/19/19 09:39 Duoneb *Not For Prn Use* IH 1 ampul QIDRT VANE Administration Famotidine 20 mg 05/17/19 18:00 05/19/19 09:54 Pepcid PO 20 mg BID VANE Administration Hydromorphone HCl 0.5 mg 05/17/19 15:55 Dilaudid IV Q3H PRN Pain , Severe (7-10) Sodium Chloride 1,000 mls @ 75 mls/hr 05/17/19 17:00 05/19/19 01:19 Nacl 0.45% 1000 Ml IV 75 mls/hr DIRECT VANE Administration Levofloxacin/Dextrose 750 mg in 150 mls @ 100 mls/hr 05/17/19 18:00 05/18/19 17:45 Levaquin 750mg/150ml IV 100 mls/hr Q24H VANE Administration Protocol Methylprednisolone Sodium Succinate 60 mg 05/17/19 20:00 05/19/19 06:21 Solu-Medrol IV 60 mg Q8H VANE Administration Metoclopramide HCl 10 mg 05/17/19 15:55 Reglan IV Q6H PRN Nausea And Vomiting Ondansetron HCl 4 mg 05/17/19 15:55 Zofran IV Q8H PRN Nausea And Vomiting Oxycodone/Acetaminophen 1 tab 05/17/19 15:55 05/19/19 01:22 Percocet 5/325 PO 1 tab Q6H PRN Administration Pain, Moderate (4-6) Sodium Chloride 10 ml 05/17/19 22:00 05/19/19 09:55 Sodium Chloride Flush Syringe 10 Ml IV 10 ml BID VANE Administration Sodium Chloride 10 ml 05/17/19 15:55 05/18/19 12:12 Sodium Chloride Flush Syringe 10 Ml IV 10 ml PRN PRN Administration LINE FLUSH
--- NOTE | 2019-05-19 15:56 | Discharge Summary ---
Providers - Providers Date of Admission: 05/18/19 09:38 Date of discharge: 05/19/19 Attending physician: PAULIE HEWITT Primary care physician: LOAN FUNDER Hospitalization Reason for admission: Cough and shortness of breath for 2 weeks Condition: Stable Pertinent studies: CXR : interstitial edema dann,possible pneumonitis Hospital course: 58-year-old -[place] female with no significant past medical history comes in for cough and body aches for 2 weeks. Cough L LS sputum. Patient went to urgent care last week and was diagnosed with flu and was given treatment. Patient has been wheezing and coughing for the past 2 weeks.Initial work up is consistant with acute exacerbation of COPD and acute bronchitis.Managed with nebs, antibiotics,O2 and tapering doses of steroids. Symtoms improved .Today patient is comfortable ,no new complaints, Vital signs reviewed Advised antibiotics. Stable at discharge Discharge Diagnosis: -- COPD exacerbation Current Visit: Yes Status: Acute Patient has underlying COPD secondary to smoking Oxygen nebulizers and IV steroids and IV antibiotics Smoking cessation consult -- Acute bronchitis Current Visit: Yes Status: Acute IV antibiotics IV fluids and IV Solu-Medrol. Also nebulizer treatments around the clock and when necessary. --Obesity :BMI 35.7 Advised weight reduction and medically stable --Tobacco Use :Smoking cessation, Nicotine patch -- DVT prophylaxis; Current Visit: Yes Status: Acute On Lovenox 40 mg subcutaneous daily Stable at discharge. Advised to f/u PMD in 1 week Disposition: DC-01 TO HOME OR SELFCARE Time spent for discharge: 32 min Core Measure Documentation - Palliative Care Palliative Care/ Comfort Measures: Not Applicable - Core Measures Any of the following diagnoses?: none Exam - Constitutional Vitals: Temp Pulse Resp BP Pulse Ox 98.3 F 94 H 20 132/75 97 05/19/19 11:40 05/19/19 12:00 05/19/19 12:00 05/19/19 11:40 05/19/19 11:40 General appearance: Present: no acute distress, well-nourished, obese - EENT Eyes: Present: PERRL, EOM intact - Neck Neck: Present: supple, normal ROM - Respiratory Respiratory effort: normal Respiratory: bilateral: diminished, negative: rales, rhonchi, wheezing - Cardiovascular Rhythm: regular Heart Sounds: Present: S1 & S2 - Extremities Extremities: no ischemia, No edema - Abdominal General gastrointestinal: Present: soft, non-tender, non-distended, normal bowel sounds - Integumentary Integumentary: Present: clear, warm - Musculoskeletal Musculoskeletal: strength equal bilaterally - Psychiatric Psychiatric: appropriate mood/affect, cooperative - Neurologic Neurologic: CNII-XII intact, moves all extremities Plan Activity: advance as tolerated Diet: low salt Special Instructions: smoking cessation Additional Instructions: If you continue to have severe shortness of breath or chest pain contact M.D. or go to emergency room Follow up with: PRIMARY CARE, [Primary Care Provider] - 7 Days Forms: Work/School Release Form Prescriptions: levoFLOXacin [Levaquin] 750 mg PO QDAY #7 tablet Famotidine [Pepcid] 20 mg PO BID #20 tablet Prednisone [predniSONE 10 mg (6-Day Pack, 21 Tabs)] 10 mg PO .TAPER #1 tab.ds.pk ALBUTEROL Inhaler (OR & NICU) [ProAir HFA Inhaler] 2 puff IH QID PRN #1 inhalation PRN Reason: Shortness Of Breath guaiFENesin/DEXTROMETHORPHAN [Robitussin Kalja-Nmzeh-Unnm Dm] 1 each PO Q8H PRN #21 capsule PRN Reason: Cough Cetirizine HCl [Zyrtec 10mg tab] 10 mg PO DAILY #10 tablet
[2019-05-19 17:04] VITALS: BP 159/86
== END 2019-05-19 17:25 | disposition home or self-care (01) ==
LOC: ED 11:09 → 3A 13:51 → OBSVTOIN 05-18 09:38 → INTOOBSV 05-18 09:38
PROVIDERS: ADMIT Internal Medicine; ATTEND Internal Medicine
DX: R09.02 Hypoxemia (principal); J44.9 Chronic obstructive pulmonary disease, unspecified; J40 Bronchitis, not specified as acute or chronic; I34.1 Nonrheumatic mitral (valve) prolapse; F17.200 Nicotine dependence, unspecified, uncomplicated; E66.9 Obesity, unspecified; Z90.710 Acquired absence of both cervix and uterus; Z68.35 Body mass index [BMI] 35.0-35.9, adult; Z23 Encounter for immunization
CPT/HCPCS: 36415; 71046; 80053; 83036; 85025; 90471; 90732; 94640; 94644; 94760; 96365; 96366; 96367; 96368; 96375; 96376; 99291; G0378; J0692; J1956; J2930; J3475; J7030; 96361